=== PATIENT | female | born 1995 | race Asian ===

== ENCOUNTER 2018-12-16 21:02 | Emergency (ER) | payer BC, OTHER ==
[~2018-12-16] VITALS: Ht 167.6 cm; Wt 85.2 kg
[2018-12-16 21:04] VITALS: BP 131/71
--- NOTE | 2018-12-16 21:51 | NUR ---
PT STATES THAT SHE TOOK "A HANDFUL OF PILLS", TYLENOL 500MG TABLETS. PT ESTIMATES 10+ TABLETS. PT STATES SHE TOOK THE PILLS TO DEAL WITH "STUFF". PT REFUSED TO ELABORATE ON "STUFF" AND STATES THAT SHE REGRETS TAKING THE PILLS NOW.
[2018-12-16 22:06] LABS: HCG UR SG 1.026 (1.003-1.030); MICROSCOPIC AUTO
[2018-12-16 22:07] LABS: CULTURE INDICATED? NO
[2018-12-16 22:17] LABS: AMPHETAMINE SCREEN, URINE Negative (Negative); BARBITURATE SCREEN, URINE Negative (Negative); BENZODIAZEPINE SCREEN, URINE Negative (Negative); CANNABINOID SCREEN, URINE Negative (Negative); COCAINE SCREEN, URINE Negative (Negative); METHADONE SCREEN, URINE Negative (Negative); OPIATE SCREEN, URINE Negative (Negative)
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
[2018-12-16 22:42] LABS: BASOPHILS # (AUTO) 0.02 x10^3/uL (0-0.1); BASOPHILS % (AUTO) 0 % (0-1); EOSINOPHILS # (AUTO) 0.06 x10^3/uL (0-0.4); EOSINOPHILS % (AUTO) 1 % (1-7); LYMPHOCYTES % (AUTO) 39 % (22-44); MD NO; MEAN CORPUSCULAR HEMOGLOBIN 24.5 pg (27.0-34.8); MEAN CORPUSCULAR HGB CONC 31.9 g/dL (32.4-35.8); MEAN CORPUSCULAR VOLUME 76.7 fL (80-100); MEAN PLATELET VOLUME 7.7 fL (7.4-10.4); MONOCYTES # (AUTO) 0.44 x10^3/uL (0.2-0.8); MONOCYTES % (AUTO) 7 % (2-9); NEUTROPHILS # (AUTO) 3.55 x10^3/uL (1.8-6.8); NEUTROPHILS % (AUTO) 53 % (42-75); PLATELET COUNT 247 x10^3/uL (130-400); RED BLOOD COUNT 5.57 x10^6/uL (3.82-5.3); RED CELL DISTRIBUTION WIDTH 12.6 % (9.6-15.2)
[2018-12-16 22:53] LABS: ALANINE AMINOTRANSFERASE 34 U/L (12-78); ALBUMIN 3.5 g/dL (3.4-5.0); ANION GAP 8 mmol/L (5-15); CALCIUM 9.4 mg/dL (8.5-10.1); CHLORIDE 108 mmol/L (98-107)
[2018-12-16 22:55] LABS: SALICYLATE LEVEL < 1.7 mg/dL (2.8-20.0)
[2018-12-16 22:56] LABS: ALKALINE PHOSPHATASE 110 U/L (45-117); BILIRUBIN,TOTAL 0.7 mg/dL (0.2-1.0); CREATININE 0.53 mg/dL (0.55-1.02); TOTAL PROTEIN 7.7 g/dL (6.4-8.2)
--- NOTE | 2018-12-16 23:07 | NUR ---
Patient with "self pay has insurance" Patient to be telepsyched as patients insurance cannot be verified per registration until the morning.
--- NOTE | 2018-12-16 23:20 | NUR ---
REPORT OF PT FROM STONEY MCKENZIE AND ASSUMING CARE OF PT AT THIS TIME.
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
--- NOTE | 2018-12-17 01:41 | NUR ---
REPORT OF PT TO STONEY CHAMBERLAIN.
--- NOTE | 2018-12-17 01:42 | NUR ---
Pt report from Brayden woodson. This rn to assume care of pt. Roller doors in place. Sitter in hallway. No immediate needs from pt.
--- NOTE | 2018-12-17 03:04 | NUR ---
Telepsych called and this rn updated on pt. Telepsych conference initiated at this time.
== END 2018-12-17 03:43 | disposition home or self-care (01) ==
LOC: ED 22:21
DX: T39.1X2A Poisoning by 4-Aminophenol derivatives, intentional self-harm, initial encounter (principal); Y92.89 Other specified places as the place of occurrence of the external cause
CPT/HCPCS: 36415; 80053; 80307; 81001; 81025; 85025; 93005; 99284